=== PATIENT | female | born 1990 | race Caucasian/White ===

== ENCOUNTER 2018-12-12 09:55 | Emergency (ER) | payer BC ==
[2018-12-12 10:11] VITALS: BP 135/85
--- NOTE | 2018-12-12 10:23 | EDM.PDOC ---
ED HPI GENERAL MEDICAL PROBLEM - General Chief Complaint: Abdominal Pain Stated Complaint: RIGHT SIDED PAIN Time Seen by Provider: 12/12/18 10:10 Source of Information: Reports: Patient, RN Notes Reviewed - History of Present Illness INITIAL COMMENTS - FREE TEXT/NARRATIVE: 28-year-old female comes in with right-sided lower abdominal and right pelvic discomfort. That started last evening but was more mild to moderate. This morning the pain is still present and becoming more severe this morning. The pain continues right lower abdomen and right pelvis without radiation. No nausea vomiting fever or chills. She does have history of a very large right ovarian cyst about 10 years ago and also had "a 2 part uterus and did have one part of that surgically removed about 10 years ago. She is on chronic control, does not have menstrual periods. There is no current vaginal bleeding or spotting. The pain is somewhat worse with walking, movement this morning. Right Lower Abdomen Pain Score (Numeric/FACES): 9 - Related Data Allergies Allergy/AdvReac Type Severity Reaction Status Date / Time No Known Allergies Allergy Verified 12/12/18 10:03 Home Meds: Home Meds Cyanocobalamin (Vitamin B12) [Vitamin B13] 500 mcg PO DAILY 12/12/18 [History] Ergocalciferol (Vitamin D2) [Vitamin D2] 400 unit PO DAILY 12/12/18 [History] Levonorgestrel-Ethin Estradiol [Setlakin 0.15 mg-0.03 mg Tab] 1 tab PO DAILY [History] PNV95/Ferrous Fumarate/FA [ Tablet] 1 tab PO DAILY 12/12/18 [History] Past Medical History HEENT History: Reports: Impaired Vision Cardiovascular History: Reports: None Respiratory History: Reports: Bronchitis, Recurrent, Pneumonia, Recurrent Gastrointestinal History: Reports: None Genitourinary History: Reports: Other (See Below) Other Genitourinary History: ONLY ONE KIDNEY FUNCTIONS NORMALLY 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 SPECIALIST History: Reports: Endometriosis Other 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 SPECIALIST History: mass by the ovary- blood filled and ovary removed Musculoskeletal History: Reports: None Neurological History: Reports: Headaches, Chronic Psychiatric History: Reports: Anxiety Endocrine/Metabolic History: Reports: None Hematologic History: Reports: None Immunologic History: Reports: None Oncologic (Cancer) History: Reports: None Dermatologic History: Reports: Eczema - Infectious Disease History Infectious Disease History: Reports: None - Past Surgical History HEENT Surgical History: Reports: Oral Surgery Female Surgical History: Reports: Oophorectomy, Other (See Below) Other Female Surgeries/Procedures: HX OF UTERINE ISSUES, NOT FORMED CORRECTLY , HAD PART OF UTEROUS REMOVED. HX OF CYSTS. Social & Family History - Family History Family Medical History: Noncontributory - Tobacco Use Smoking Status *Q: Never Smoker - Caffeine Use Caffeine Use: Reports: Coffee, Tea - Recreational Drug Use Recreational Drug Use: No - Living Situation & Occupation Living situation: Reports: , with Spouse Occupation: Employed ED ROS GENERAL - Review of Systems Review Of Systems: See Below Constitutional: Denies: Fever, Chills, Diaphoresis HEENT: Denies: Throat Pain Respiratory: Denies: Shortness of Breath, Cough Cardiovascular: Denies: Chest Pain, Lightheadedness GI/Abdominal: Reports: Abdominal Pain. Denies: Nausea (Right lower abdomen), Vomiting Musculoskeletal: Reports: Back Pain (Mild) Skin: Reports: No Symptoms Neurological: Reports: No Symptoms ED EXAM, GI/ABD - Physical Exam Exam: See Below General Appearance: Alert, Mild Distress Eyes: Bilateral: Normal Appearance Throat/Mouth: Normal Inspection Head: Atraumatic Neck: Supple Respiratory/Chest: No Respiratory Distress, Lungs Clear, Normal Breath Sounds Cardiovascular: Regular Rate, Rhythm GI/Abdominal Exam: Soft, Tender (There is moderate tenderness of the right lower abdomen), Other (Remainder of abdomen soft and nontender). No: Guarding, Rebound (Female) Exam: Other (Is moderate tenderness of the right lower pelvis, no mass palpable) Extremities: Normal Inspection, Normal Range of Motion Skin Exam: Warm, Dry, Normal Color Course - Vital Signs Last Recorded V/S: Last Vital Signs Temp 98.2 F 12/12/18 10:08 Pulse 86 12/12/18 10:08 Resp 14 12/12/18 10:08 BP 135/85 12/12/18 10:08 Pulse Ox 100 12/12/18 10:08 - Orders/Labs/Meds Orders: Active Orders 24 hr Category Date Time Status Peripheral IV Care [RC] . DIRECTED Care 12/12/18 10:31 Active Peripheral IV Insertion Adult [OM.PC] Stat Oth 12/12/18 10:31 Ordered Labs: Laboratory Tests 12/12/18 12/12/18 12/12/18 Range/Units 10:35 10:35 10:35 WBC 7.50 (3.98-10.04) K/mm3 RBC 5.22 (3.98-5.22) M/mm3 Hgb 16.1 H (11.2-15.7) gm/L Hct 44.5 (34.1-44.9) % MCV 85.2 (79.4-94.8) fl MCH 30.8 (25.6-32.2) pg MCHC 36.2 H (32.2-35.5) g/dl RDW Std Deviation 40.8 (36.4-46.3) fL Plt Count 250 (182-369) K/mm3 MPV 11.6 (9.4-12.3) fl Neutrophils % (Manual) 68 H (40-60) % Band Neutrophils % 0 (0-10) % Lymphocytes % (Manual) 22 (20-40) % Atypical Lymphs % 0 % Monocytes % (Manual) 2 (2-10) % Eosinophils % (Manual) 8 H (0.7-5.8) % Basophils % (Manual) 0 L (0.1-1.2) Platelet Estimate Adequate Plt Morphology Comment Normal RBC Morph Comment Normal C-Reactive Protein 0.8 (<1.0) mg/dL HCG, Qual Negative (NEGATIVE) Meds: Medications Discontinued Medications Generic Name Dose Route Start Last Admin Trade Name Freq PRN Reason Stop Dose Admin Hydromorphone HCl 0.5 mg 12/12/18 10:31 12/12/18 10:44 Dilaudid IVPUSH 12/12/18 10:32 0.5 mg ONETIME ONE Administration Sodium Chloride 10 ml 12/12/18 10:31 12/12/18 10:42 Saline Flush FLUSH 10 ml ASDIRECTED PRN Administration Keep Vein Open - Re-Assessments/Exams Free Text/Narrative Re-Assessment/Exam: 12/12/18 14:36. White blood count came back at 7500, C-reactive protein 0.8. HCG negative. Pelvic ultrasound showed just a small amount of fluid within the right adnexa most likely physiologic. Right ovary mildly larger than the left. See radiology report for details. Limited abdominal ultrasound did have bowel gas limiting the exam. Appendix not definitely visualized. No free fluid or inflammatory change appreciated. See radiology report for details. She did get fairly good relief of pain after 0.5 mg Dilaudid IV. On reexam she still did have some mild tenderness right lower quadrant but no guarding or rebound. She was actually starting to feel hungry and never did have nausea or vomiting. We did discuss option of proceeding to abdominal CT exam versus watching, waiting and giving this a chance to get better. She and family prefer that option, she will come back if symptoms worsening this evening for as needed. Charge instructions as documented. Departure - Departure Time of Disposition: 14:29 Disposition: Home, Self-Care 01 Condition: Fair Clinical Impression: Abdominal pain Qualifiers: Abdominal location: right lower quadrant Qualified Code(s): R10.31 - Right lower quadrant pain - Discharge Information Instructions: Abdominal Pain, Adult Referrals: Tabby Nieves MD [Primary Care Provider] - Forms: ED Department Discharge Additional Instructions: Rest, clear liquids for the next hour or 2, then very careful bland diet as tolerated, return to ED this evening or at any time if symptoms worsening in any way. Follow-up clinic tomorrow if not better, return to ED if not able to get into the clinic if not better by tomorrow. You may safely take Tylenol or ibuprofen as needed for discomfort. - My Orders Last 24 Hours: My Active Orders 12/12/18 10:31 Peripheral IV Care [RC] . DIRECTED Peripheral IV Insertion Adult [OM.PC] Stat - Assessment/Plan Last 24 Hours: My Active Orders 12/12/18 10:31 Peripheral IV Care [RC] . DIRECTED Peripheral IV Insertion Adult [OM.PC] Stat
[2018-12-12] MEDS ORDERED: Sodium Chloride 0.9% 10 ML Syringe FLUSH PRN (10:31)
[2018-12-12] MEDS ORDERED: HYDROmorphone 0.5 MG/0.5 ML Syringe IVPUSH ONE (10:31)
--- NOTE | 2018-12-12 13:30 | US ---
Limited abdominal ultrasound: Multiple real-time images of the right lower abdomen were obtained. Bowel gas is seen limiting the exam. Appendix not definitely visualized. No free fluid or inflammatory change is appreciated. Impression: 1. Slightly limited due to bowel gas. Nonvisualized appendix. Diagnostic code #2
--- NOTE | 2018-12-12 13:30 | US ---
Pelvic ultrasound: Multiple real-time images were obtained transvaginally. Comparison: No prior pelvic imaging. Uterus is anteverted and pointed to the right side. No myometrial abnormality is seen. Endometrial thickness is 3.0 mm. Right and left ovaries appear within normal limits. Minimal free fluid is seen within the right adnexa likely physiologic. Measurements: Uterus: Length 6.2 cm, AP height 1.8 cm,transverse width 2.2 cm Right ovary: 3.1 x 1.8 x 2.4 cm Left ovary: 2.1 x 0.8 x 1.1 cm Impression: 1. Slight fluid within the right adnexa most likely physiologic. 2. Pelvic ultrasound is otherwise unremarkable. Diagnostic code #2
== END 2018-12-12 14:45 | disposition home or self-care (01) ==
LOC: JD.ED 09:55
DX: R10.31 Right lower quadrant pain (principal); F41.9 Anxiety disorder, unspecified; Z79.899 Other long term (current) drug therapy
CPT/HCPCS: 36415; 76705; 76830; 84703; 85007; 85027; 86140; 96374; 99284; J1170

== ENCOUNTER 2019-11-23 11:27 | Emergency (ER) | payer BC ==
[2019-11-23 11:46] VITALS: BP 118/79; PULSE 88
[2019-11-23] MEDS ORDERED: Lidocaine 1% 10 ML MDV INJECT ONE (11:52)
[2019-11-23] MEDS ORDERED: Diphtheria,Pertussis(Acell),Tetanus Vaccine 0.5 ML Syringe IM ONE (11:52)
--- NOTE | 2019-11-23 11:57 | EDM.PDOC ---
ED HPI GENERAL MEDICAL PROBLEM - General Chief Complaint: Laceration Stated Complaint: FINGER LAC Time Seen by Provider: 11/23/19 11:38 Source of Information: Reports: Patient History Limitations: Reports: No Limitations - History of Present Illness INITIAL COMMENTS - FREE TEXT/NARRATIVE: Patient is a 29-year-old female who presents with a 2 cm laceration to the volar aspect of her left thumb distal to the MCP joint. States that she was trying to cut a piece of tape with a scissor and it slipped and cut her finger. She is unsure when her last tetanus vaccination Left Finger-Thumb Pain Score (Numeric/FACES): 8 - Related Data Allergies Allergy/AdvReac Type Severity Reaction Status Date / Time No Known Allergies Allergy Verified 12/12/18 10:03 Home Meds: Home Meds Albuterol [Proventil HFA] 1 inh INH ASDIRECTED 11/23/19 [History] Fluticasone Propionate [Flonase Allergy Relief] 1 spray INH DAILY 11/23/19 [ History] Past Medical History HEENT History: Reports: Impaired Vision Cardiovascular History: Reports: None Respiratory History: Reports: Bronchitis, Recurrent, Pneumonia, Recurrent Gastrointestinal History: Reports: None Genitourinary History: Reports: Other (See Below) Other Genitourinary History: ONLY ONE KIDNEY FUNCTIONS NORMALLY 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: Endometriosis 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: mass by the ovary- blood filled and ovary removed Musculoskeletal History: Reports: None Neurological History: Reports: Headaches, Chronic Psychiatric History: Reports: Anxiety Endocrine/Metabolic History: Reports: None Hematologic History: Reports: None Immunologic History: Reports: None Oncologic (Cancer) History: Reports: None Dermatologic History: Reports: Eczema - Infectious Disease History Infectious Disease History: Reports: None - Past Surgical History HEENT Surgical History: Reports: Oral Surgery Female Surgical History: Reports: Oophorectomy, Other (See Below) Other Female Surgeries/Procedures: HX OF UTERINE ISSUES, NOT FORMED CORRECTLY , HAD PART OF UTEROUS REMOVED. HX OF CYSTS. Social & Family History - Family History Family Medical History: Noncontributory - Tobacco Use Smoking Status *Q: Never Smoker - Caffeine Use Caffeine Use: Reports: Coffee, Soda - Recreational Drug Use Recreational Drug Use: No - Living Situation & Occupation Living situation: Reports: , with Spouse Occupation: Employed ED ROS GENERAL - Review of Systems Review Of Systems: Comprehensive ROS is negative, except as noted in HPI. ED EXAM, SKIN/RASH Exam: See Below Exam Limited By: No Limitations General Appearance: Alert, WD/WN, No Apparent Distress Respiratory/Chest: No Respiratory Distress, Lungs Clear, Normal Breath Sounds, No Accessory Muscle Use, Chest Non-Tender Cardiovascular: Normal Peripheral Pulses, Regular Rate, Rhythm, No Edema, No Gallop, No JVD, No Murmur, No Rub Skin: Other (2 cm laceration to the volar aspect of the left thumb distal to the MCP joint. Patient has a full strength to flexion and extension of the digit. Scant active bleeding.) ED SKIN PROCEDURES - Laceration/Wound Repair Left Ventral Digit - 1st (Thumb) Appearance: Subcutaneous Distal NVT: Neuro & Vascular Intact Anesthetic Type: Local Local Anesthesia - Lidocaine (Xylocaine): 1% Plain Local Anesthetic Volume: 2cc Skin Prep: Chlorhexidine (Hibiciens), Providone-Iodine (Betadine), Saline Exploration/Debridement/Repair: Wound Explored, No Foreign Material Found Closed with: Sutures Lac/Wound length In cm: 2 Suture Size: 4-0 # of Sutures: 4 Suture Type: Nylon Sterile Dressing Applied: Nurse Tetanus Status Addressed: Yes Complications: No Course - Vital Signs Last Recorded V/S: Last Vital Signs Temp 98.1 F 11/23/19 11:44 Pulse 88 11/23/19 11:44 Resp 20 11/23/19 11:44 BP 118/79 11/23/19 11:44 Pulse Ox 99 11/23/19 11:44 - Orders/Labs/Meds Orders: Active Orders 24 hr Category Date Time Status Vaccines to be Administered [RC] PER UNIT ROUTINE Care 11/23/19 11:52 Active Meds: Medications Discontinued Medications Generic Name Dose Route Start Last Admin Trade Name Freq PRN Reason Stop Dose Admin Diphtheria/Tetanus/Acell Pertussis 0.5 ml 11/23/19 11:52 11/23/19 12:02 Adacel IM 11/23/19 11:53 0.5 ml .ONCE ONE Administration Lidocaine HCl 10 ml 11/23/19 11:52 11/23/19 12:02 Xylocaine 1% INJECT 11/23/19 11:53 10 ml ONETIME ONE Administration Departure - Departure Time of Disposition: 12:21 Disposition: Home, Self-Care 01 Condition: Good Clinical Impression: Laceration - Discharge Information *PRESCRIPTION DRUG MONITORING PROGRAM REVIEWED*: No *COPY OF PRESCRIPTION DRUG MONITORING REPORT IN PATIENT AUSTYN: No Instructions: Sutures, Peck, or Adhesive Wound Closure, [id number], Laceration Care, Adult, [id number] Referrals: Tabby Nieves MD [Primary Care Provider] - Forms: ED Department Discharge Additional Instructions: You were seen in the emergency department today for a 2 cm laceration to your left thumb. The wound was cleansed and closed with 4 sutures. It should be kept clean and dry. Wash twice daily with normal soap and water. You may shower like normal, however do not submerge your hand in water. Sutures should stay in place for at least 7 days. Recommend that you call to schedule a nurse visit on or Wednesday of next week to have the sutures removed. Watch for signs of infection including increased redness, swelling, or purulent drainage. If these should occur, you should be seen in the clinic or return to the emergency department. He did receive a tetanus vaccination today. This updates you for 10 years. Sepsis Event Note - Evaluation Sepsis Screening Result: No Definite Risk - Focused Exam Vital Signs: Vital Signs Temp Pulse Resp BP Pulse Ox 11/23/19 11:44 98.1 F 88 20 118/79 99 Date Exam was Performed: 11/23/19 Time Exam was Performed: 12:21 - My Orders Last 24 Hours: My Active Orders 11/23/19 11:52 Vaccines to be Administered [RC] PER UNIT ROUTINE - Assessment/Plan Last 24 Hours: My Active Orders 11/23/19 11:52 Vaccines to be Administered [RC] PER UNIT ROUTINE
== END 2019-11-23 12:30 | disposition home or self-care (01) ==
LOC: JD.ED 11:27
DX: S61.012A Laceration without foreign body of left thumb without damage to nail, initial encounter (principal); Z23 Encounter for immunization; W27.2XXA Contact with scissors, initial encounter
CPT/HCPCS: 12001; 90471; 90715; 99282; J2001

== ENCOUNTER 2020-08-07 22:19 | Inpatient (IN) | payer BC ==
[2020-08-07] MEDS ORDERED: Azithromycin 500 MG in Sodium Chloride 0.9% 250 ML IV ONE (22:46)
[2020-08-07] MEDS ORDERED: Sodium Chloride 0.9% 10 ML Syringe FLUSH PRN (22:46)
[2020-08-07] MEDS ORDERED: Metoclopramide 10 MG/2 ML SDV IVPUSH ONE (22:46)
[2020-08-07] MEDS ORDERED: ceFAZolin 2 GM in Premix Bag 1 BAG IV ONE (22:46)
[2020-08-07] MEDS ORDERED: Citric Acid/Sodium Citrate Solution 30 ML Cup PO ONE (22:46)
[2020-08-07] MEDS ORDERED: Oxytocin/Lactated Ringers 10 UNIT/1,000 ML BAG IV SCH (23:00)
[2020-08-07] MEDS: Lactated Ringers 1,000 ML IV SCH (23:15)
--- NOTE | 2020-08-07 23:33 | PCM.LDHP ---
L&D History of Present Illness - General Date of Service: 08/07/20 Admit Problem/Dx: Patient Status Order with Admit Dx/Problem 08/07/20 22:29 Patient Status [ADT] Routine 08/07/20 22:46 Patient Status [ADT] Routine Admission Diagnosis/Problem Admission Diagnosis/Problem 08/07/20 23:17 Erika is a 29-year-old 1 para 0 white female who is admitted to labor and delivery on the evening of 08/07/2020 at 36-6/7 weeks gestational age with an SILVIA of 08/29/2020 with spontaneous rupture membranes in early labor. She has a unicornuate uterus and has had uterine surgery in the past precluding an attempt at vaginal delivery and indicating the recommendation for primary section to effect delivery. Source of Information: Patient History Limitations: Reports: No Limitations - History of Present Illness Introduction:: Erika is a 29-year-old 1 para 0 white female who is admitted to labor and delivery on the evening of 08/07/2020 at 36-6/7 weeks gestational age with an SILVIA of 08/29/2020 with spontaneous rupture membranes in early labor. She has a unicornuate uterus and has had uterine surgery in the past precluding an attempt at vaginal delivery and indicating the recommendation for primary section to effect delivery. The procedure of primary section, its risks, benefits and alternatives of care are discussed in detail the patient. She appears to understand, wishes to proceed and has signed a consent for surgery. CLERK RATING history: 1 para 0. SILVIA of 08/29/2020 is determined by an ultrasound done early in the at 9-3/7 weeks. Is supported by multiple ultrasounds during the course of the rest of the . Patient has a history of previous uterine surgery with scar on the fundus of the uterus precluding a trial of labor for attempt at vaginal delivery. She is scheduled for primary section on 08/20/2020 but has come in with spontaneous rupture membranes at approximately 2130 hrs. tonight with gross rupture membranes and is now yoan approximately every 3 to 5 minutes. Patient had menarche at age 17. Cycles q. 26 to 30 days. Last menstrual period was definite. She does not use any control time of conception. She has had no abnormal Pap smears or STIs. She is sexually active. course: Patient was seen initially early in the at 9 7 weeks gestational age. Ultrasound at that time resulted in her final SILVIA. Patient was seen on a regular basis throughout the . She had regular monthly growth ultrasounds which indicated normal growth interval. Weight gain was from 145.4 pounds to 188.8 pounds for a 43.4 pound increase. Fundal height growth was appropriate. Baby's been in vertex presentation. Weekly biophysical profiles since 32 weeks have been reassuring with scores of 8/8. Plan was to proceed with a primary section to effect delivery. Patient had an abnormal 1 hour GTT but a normal 3-hour glucose tolerance test. She is group B strep negative. She plans to breast-feed. Prequel was completed and was unremarkable with very low risk noted for trisomy 21, 18 and 13. Risk factors for the include history of unicornuate uterus, previous uterine surgery, single kidney and asthma. Erika had her flu shot on 05/14/2020 and her Tdap on 07/02/2020. Laboratory testing shows blood to be O+ with a negative CA screen. First hemoglobin was 14.9 g/dL. Platelets were 236,000. Her rubella titer showed a equivocal results. She is therefore candidate for a MMR after delivery and prior to discharge from the hospital at the time of . RPR was nonreactive. His urine culture was negative. Hepatitis B surface antigen and HIV assays were both negative. Gonorrhea and chlamydia assays both negative. Second trimester labs showed a hemoglobin of 13.5 g/dL and platelets of 207,000. 1 hour GTT was elevated at 134. Her glucose tolerance test was normal with fasting blood sugar of 77, 1 hour glucose of 155, 2-hour glucose of 102 and a 3-hour glucose of 101. Group B strep screen was negative. Allergies: None. Medications: 1. vitamins 1 p.o. daily 2. Fluticasone propionate nasal suspension 2 sprays in each nostril daily 3. ProAir HFA 1 await micrograms per action inhaler as needed for wheezing. Past medical history: 1. Unicornuate uterus with removal noncommunicating horn 2008 2. Single kidney 3. Asthma Past surgical history: 1. Removal of non-communicating horn of the uterus 2008 2. [place] teeth extraction Social history: Patient is . is Charles Camacho. They live in [place], [place]. She is not employed at the present time. She does not use any significant also alcohol, drugs or tobacco. She is a college graduate. Family history: Mother is alive and well. Father is alive and well and questionably prediabetic. 1 brother alive and well. Maternal grandmother secondary to an aneurysm. Maternal grandfather age 85 from colon cancer. Paternal grandmother is alive is a smoker. Paternal grandfather secondary to metastatic cancerprimary cancer unknown. No anesthesia, asthma, bleeding, blood clotting, related problems noted in the family. Review of systems: In general patient has no complaints. She does report SROM with clear amniotic fluid and early contractions. Baby has been active. Skin: Negative Lungs: No infectious symptoms or shortness of breath Cardiovascular: No chest pain or exercise intolerance Breasts: No lumps, changes in size, pain, dimpling, discharge or axillary or tate praclavicular concerns. GI: Negative : body habitus changes Musculoskeletal: Negative Neurological: Negative Physical exam: In general the patient is well-developed, well-nourished, pleasant female of stated age in no acute distress. Last evaluation clinic on 08/06/2019 Erika's weight was 188.8 with a pregravida weight of 145.4 pounds. Height is 5 feet 9. Prepregnancy body mass index was 20.7. heart rate was 140. Fundal height measurement was 37 inches. Baby is in vertex presentation by Axel maneuver and by ultrasound at that time. Skin is warm dry without lesions. HEENT, neck and back within normal limits. Lungs are clear with good breath sounds in all lung pan. Cardiovascular exam shows regular and rhythm without murmurs. Breast exam done at first visit was within normal months and is not repeated at this time. Patient does plan to breast-feed. Abdomen is gravid with last fundal height of 37 cm. Baby in vertex presentation.. Genital digital exam done by nursing staff in L&D at the time of admission showed cervix to be 3 cm.. Extremities and neurological exam are grossly within normal limits. - Related Data Allergies/Adverse Reactions: Allergies Allergy/AdvReac Type Severity Reaction Status Date / Time No Known Allergies Allergy Verified 12/12/18 10:03 Home Medications: Home Meds Albuterol [Proventil HFA] 1 inh INH ASDIRECTED 11/23/19 [History] Fluticasone Propionate [Flonase Allergy Relief] 1 spray INH DAILY 11/23/19 [History] Past Medical History HEENT History: Reports: Impaired Vision Cardiovascular History: Reports: None Respiratory History: Reports: Bronchitis, Recurrent, Pneumonia, Recurrent Gastrointestinal History: Reports: None Genitourinary History: Reports: Other (See Below) Other Genitourinary History: ONLY ONE KIDNEY FUNCTIONS NORMALLY CLERK RATING History: Reports: Endometriosis Other OB/BYN History: mass by the ovary- blood filled and ovary removed Musculoskeletal History: Reports: None Neurological History: Reports: Headaches, Chronic Psychiatric History: Reports: Anxiety Endocrine/Metabolic History: Reports: None Hematologic History: Reports: None Immunologic History: Reports: None Oncologic (Cancer) History: Reports: None Dermatologic History: Reports: Eczema - Infectious Disease History Infectious Disease History: Reports: None - Past Surgical History HEENT Surgical History: Reports: Oral Surgery Female Surgical History: Reports: Oophorectomy, Other (See Below) Other Female Surgeries/Procedures: HX OF UTERINE ISSUES, NOT FORMED CORRECTLY, HAD PART OF UTEROUS REMOVED. HX OF CYSTS. Social & Family History - Family History Family Medical History: No Pertinent Family History - Caffeine Use Caffeine Use: Reports: Coffee, Soda - Living Situation & Occupation Living situation: Reports: , with Spouse Occupation: Employed H&P Review of Systems - Review of Systems: Review Of Systems: See Below L&D Exam - Exam Exam: See Below - Vital Signs Vital Signs: Last Vital Signs Temp 37.7 C 08/07/20 22:29 Pulse 83 08/07/20 22:29 Resp 16 08/07/20 22:29 BP 130/81 08/07/20 22:29 Pulse Ox 100 08/07/20 22:29 - Patient Data Lab Results Last 24 hrs: Laboratory Results - last 24 hr 08/07/20 Range/Units 22:56 WBC 11.57 H (3.98-10.04) K/mm3 RBC 4.51 (3.98-5.22) M/mm3 Hgb 13.5 (11.2-15.7) gm/dl Hct 40.1 (34.1-44.9) % MCV 88.9 (79.4-94.8) fl MCH 29.9 (25.6-32.2) pg MCHC 33.7 (32.2-35.5) g/dl RDW Std Deviation 44.9 (36.4-46.3) fL Plt Count 170 L (182-369) K/mm3 MPV 12.0 (9.4-12.3) fl Neut % (Auto) 65.9 (34.0-71.1) % Lymph % (Auto) 22.3 (19.3-51.7) % [place] % (Auto) 9.7 (4.7-12.5) % Eos % (Auto) 1.5 (0.7-5.8) Baso % (Auto) 0.2 (0.1-1.2) % Neut # (Auto) 7.63 H (1.56-6.13) K/mm3 Lymph # (Auto) 2.58 (1.18-3.74) K/mm3 [place] # (Auto) 1.12 H (0.24-0.36) K/mm3 Eos # (Auto) 0.17 (0.04-0.36) K/mm3 Baso # (Auto) 0.02 (0.01-0.08) K/mm3 Result Diagrams: 08/07/20 22:56 Problem List Initiated/Reviewed/Updated: Yes Orders Last 24hrs: Active Orders 24 hr Category Date Time Status Patient Status [ADT] Routine ADT 08/07/20 22:46 Active Antiembolic Devices [RC] .Routine Care 08/07/20 22:48 Active Communication Order [RC] ROUTINE Care 08/07/20 22:46 Active Heart Tones [RC] PER UNIT ROUTINE Care 08/07/20 22:46 Active Non Stress Test [RC] PER UNIT ROUTINE Care 08/07/20 22:29 Active Peripheral IV Care [RC] . DIRECTED Care 08/07/20 22:46 Active Procedure Site Prep Instruct [RC] ASDIRECTED Care 08/07/20 22:46 Active Urinary Catheter Assessment [RC] ASDIRECTED Care 08/07/20 22:46 Active VTE/DVT Education [RC] PER UNIT ROUTINE Care 08/07/20 22:48 Active Verify Patient Consent Obtain [RC] PER UNIT ROUTINE Care 08/07/20 22:46 Active Vital Signs [RC] PER UNIT ROUTINE Care 08/07/20 22:29 Active Nothing Per Oral Diet [DIET] Diet 08/07/20 Dinner Active CORONAVIRUS COVID-19 [facility]OS[facility]IGU[facility] [MOLEC] Stat Lab 08/07/20 22:55 Received RAPID PLASMA REAGIN,RPR [CHEM] Routine Lab 08/07/20 22:56 Received TYPE AND SCREEN [BBK] Stat Lab 08/07/20 22:56 Received Azithromycin [Zithromax] 500 mg Med 08/07/20 22:46 Active Sodium Chloride 0.9% [Normal Saline (AdvBag)] 250 ml IV ONETIME Lactated Ringers [Ringers, Lactated] 1,000 ml Med 08/07/20 23:00 Active IV ASDIRECTED Oxytocin/Lactated Ringers [Pitocin in LR 10 Units/1,000 Med 08/07/20 23:00 Active ML] 10 unit in 1,000 ml IV ASDIRECTED Sodium Chloride 0.9% [Saline Flush] Med 08/07/20 22:46 Active 10 ml FLUSH ASDIRECTED PRN DVT/VTE Prophylaxis Reflex [OM.PC] Routine Oth 08/07/20 22:46 Ordered Peripheral IV Insertion Adult [OM.PC] Routine Oth 08/07/20 22:46 Ordered Schedule Procedure [COMM] Per Unit Routine Oth 08/07/20 22:46 Ordered Resuscitation Status Routine Resus Stat 08/07/20 22:29 Ordered Medication Orders Lactated Ringer's (Ringers, Lactated) 1,000 mls @ 125 mls/hr IV ASDIRECTED KEIRA Last Admin: 08/07/20 23:15 Dose: 999 mls/hr Documented by: DEVENDRA Oxytocin/Lactated Ringer's (Pitocin In Lr 10 Units/1,000 Ml) 10 unit in 1,000 mls @ 100 mls/hr IV ASDIRECTED KEIRA Azithromycin 500 mg/ Sodium (Chloride) 250 mls @ 250 mls/hr IV ONETIME ONE Stop: 08/07/20 23:45 Last Admin: 08/07/20 23:15 Dose: 250 mls/hr Documented by: DEVENDRA Sodium Chloride (Saline Flush) 10 ml FLUSH ASDIRECTED PRN PRN Reason: Keep Vein Open Assessment/Plan Comment:: Michelle is a 29-year-old 1 para 0 white female who is admitted to labor and delivery on the evening of 08/07/2020 at 36-6/7 weeks gestational age with an SILVIA of 08/29/2020 with spontaneous rupture membranes in early labor. She has a unicornuate uterus and has had uterine surgery in the past precluding an attempt at vaginal delivery and indicating the recommendation for primary section to effect delivery. 2. Risk factors for the include unicornuate uterus, history of pr evious uterine surgery, history of single kidney, history of asthma. 3. Group B strep screen negative 4. Patient has received her Tdap and her flu immunization 5. Patient plans to breast-feed. 6. Patient was a centering patient during the course of her . 7. testing consisting of biophysical profiles done weekly and monthly growth ultrasounds prior to that have been reassuring Plan: 1. Primary low uterine segment transverse section through Pfannenstiel skin incision. The procedure, risk, benefits, alternatives of care and follow- up were discussed in detail with the patient. She appears understand as does her Charles and they wish to proceed. Consent is signed. 2. Preoperative laboratory testing consist of COVID-19 testing, CBC, type and screen, RPR. 3. DVT prophylaxis with SCDs 4. Ancef 2 g IV preop for infection prophylaxis 5. Pediatrics to be here for delivery. 6. Support breast-feeding decision.
[2020-08-07] MEDS ORDERED: Bupivacaine 0.5% 30 ML SDV ONE (23:34)
[2020-08-08] MEDS ORDERED: Oxytocin 10 Units/1 ML SDV ONE
[2020-08-08] MEDS ORDERED: fentaNYL 100 MCG/2 ML SDV ONE
[2020-08-08] MEDS ORDERED: Morphine PF 10 MG/10 ML SDV ONE
[2020-08-08] MEDS ORDERED: ceFAZolin 1 GM Vial ONE
[2020-08-08] MEDS ORDERED: Lactated Ringers 1,000 ML ONE (00:16)
[2020-08-08] MEDS ORDERED: fentaNYL 100 MCG/2 ML SDV IVPUSH PRN (00:39)
[2020-08-08] MEDS ORDERED: Ondansetron 4 MG/2 ML SDV IVPUSH PRN (00:39)
[2020-08-08] MEDS ORDERED: diphenhydrAMINE 50 MG/ML SDV IVPUSH PRN ×2 (00:39→02:31)
--- NOTE | 2020-08-08 00:39 | PCM.PREANE ---
Preanesthetic Assessment - Procedure Proposed Procedure: Primary Section - Anesthesia/Transfusion/Family Hx Anesthesia History: Prior Anesthesia Reaction Transfusion History: No Prior Transfusion(s) - Review of Systems General: No Symptoms Pulmonary: No Symptoms Cardiovascular: No Symptoms Gastrointestinal: No Symptoms Neurological: No Symptoms Other: Reports: None - Physical Assessment NPO Status Date: 08/07/20 NPO Status Time: 20:00 Vital Signs: Last Vital Signs Temp 99.9 F 08/07/20 22:29 Pulse 83 08/07/20 22:29 Resp 16 08/07/20 22:29 BP 130/81 08/07/20 22:29 Pulse Ox 100 08/07/20 22:29 Height: 1.65 m Weight: 85.275 kg ASA Class: 2E Mental Status: Alert & Oriented x3 Airway Class: Mallampati = 1 Dentition: Reports: Normal Dentition Thyro-Mental Finger Breadths: 3 Mouth Opening Finger Breadths: 3 ROM/Head Extension: Full Lungs: Clear to Auscultation, Normal Respiratory Effort Cardiovascular: Regular Rate, Regular Rhythm - Lab Values: Laboratory Last Values WBC 11.57 K/mm3 (3.98-10.04) H 08/07/20 22:56 RBC 4.51 M/mm3 (3.98-5.22) 08/07/20 22:56 Hgb 13.5 gm/dl (11.2-15.7) 08/07/20 22:56 Hct 40.1 % (34.1-44.9) 08/07/20 22:56 MCV 88.9 fl (79.4-94.8) 08/07/20 22:56 MCH 29.9 pg (25.6-32.2) 08/07/20 22:56 MCHC 33.7 g/dl (32.2-35.5) 08/07/20 22:56 RDW Std Deviation 44.9 fL (36.4-46.3) 08/07/20 22:56 Plt Count 170 K/mm3 (182-369) L 08/07/20 22:56 MPV 12.0 fl (9.4-12.3) 08/07/20 22:56 Neut % (Auto) 65.9 % (34.0-71.1) 08/07/20 22:56 Lymph % (Auto) 22.3 % (19.3-51.7) 08/07/20 22:56 [place] % (Auto) 9.7 % (4.7-12.5) 08/07/20 22:56 Eos % (Auto) 1.5 (0.7-5.8) 08/07/20 22:56 Baso % (Auto) 0.2 % (0.1-1.2) 08/07/20 22:56 Neut # (Auto) 7.63 K/mm3 (1.56-6.13) H 08/07/20 22:56 Lymph # (Auto) 2.58 K/mm3 (1.18-3.74) 08/07/20 22:56 [place] # (Auto) 1.12 K/mm3 (0.24-0.36) H 08/07/20 22:56 Eos # (Auto) 0.17 K/mm3 (0.04-0.36) 08/07/20 22:56 Baso # (Auto) 0.02 K/mm3 (0.01-0.08) 08/07/20 22:56 SARS-CoV-2 RNA (JOS[facility] MIGUEL) Negative (NEGATIVE) 08/07/20 22:55 Blood Type O POSITIVE 08/07/20 22:56 Gel Antibody Screen Negative 08/07/20 22:56 - Allergies Allergies/Adverse Reactions: Allergies Allergy/AdvReac Type Severity Reaction Status Date / Time No Known Allergies Allergy Verified 08/07/20 23:43 - Acknowledgements Anesthesia Type Planned: Spinal Pt an Appropriate Candidate for the Planned Anesthesia: Yes Alternatives and Risks of Anesthesia Discussed w Pt/Guardian: Yes Pt/Guardian Understands and Agrees with Anesthesia Plan: Yes PreAnesthesia Questionnaire HEENT History: Reports: Impaired Vision, Otitis Media Cardiovascular History: Reports: None Respiratory History: Reports: Bronchitis, Recurrent, Pneumonia, Recurrent Gastrointestinal History: Reports: None Genitourinary History: Reports: Other (See Below) Other Genitourinary History: ONLY ONE KIDNEY FUNCTIONS NORMALLY 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: Other OB/BYN History: mass by the ovary- blood filled and ovary removed Musculoskeletal History: Reports: None Neurological History: Reports: Headaches, Chronic Psychiatric History: Reports: Anxiety Endocrine/Metabolic History: Reports: None Hematologic History: Reports: None Immunologic History: Reports: None Oncologic (Cancer) History: Reports: None Dermatologic History: Reports: Eczema - Infectious Disease History Infectious Disease History: Reports: None - Past Surgical History HEENT Surgical History: Reports: Oral Surgery Female Surgical History: Reports: Oophorectomy, Other (See Below) Other Female Surgeries/Procedures: HX OF UTERINE ISSUES, NOT FORMED CORRECTLY, HAD PART OF UTEROUS REMOVED. HX OF CYSTS. - SUBSTANCE USE Tobacco Use Status *Q: Never Tobacco User Second Hand Smoke Exposure: No Recreational Drug Use History: No - HOME MEDS Home Medications: Home Meds Pnv No.95/Ferrous Fum/Folic AC [ Tablet] 1 each PO DAILY 08/07/20 [History] - CURRENT (IN HOUSE) MEDS Current Meds: Current Medications Lactated Ringer's (Ringers, Lactated) 1,000 mls @ 125 mls/hr IV ASDIRECTED [facility] Last Admin: 08/07/20 23:15 Dose: 999 mls/hr Documented by: Oxytocin/Lactated Ringer's (Pitocin In Lr 10 Units/1,000 Ml) 10 unit in 1,000 mls @ 100 mls/hr IV ASDIRECTED [facility] Sodium Chloride (Saline Flush) 10 ml FLUSH ASDIRECTED PRN PRN Reason: Keep Vein Open Discontinued Medications Bupivacaine HCl (Marcaine 0.5%) Confirm Administered Dose 30 ml .ROUTE .STK-MED ONE Stop: 08/07/20 23:35 Cefazolin Sodium (Ancef) Confirm Administered Dose 2 gm .ROUTE .STK-MED ONE Stop: 08/08/20 00:01 Citric Acid/Sodium Citrate (Bicitra Solution) 30 ml PO ONETIME ONE Stop: 08/07/20 22:47 Last Admin: 08/07/20 23:16 Dose: 30 ml Documented by: Fentanyl (Sublimaze) Confirm Administered Dose 100 mcg .ROUTE .STK-MED ONE Stop: 08/08/20 00:01 Cefazolin Sodium/Dextrose 2 gm (/ Premix) 50 mls @ 100 mls/hr IV ONETIME ONE Stop: 08/07/20 23:15 Azithromycin 500 mg/ Sodium (Chloride) 250 mls @ 250 mls/hr IV ONETIME ONE Stop: 08/07/20 23:45 Last Admin: 08/07/20 23:15 Dose: 250 mls/hr Documented by: Lactated Ringer's (Ringers, Lactated) Confirm Administered Dose 1,000 mls @ as directed .ROUTE .STK-MED ONE Stop: 08/08/20 00:17 Metoclopramide HCl (Reglan) 10 mg IVPUSH ONETIME ONE Stop: 08/07/20 22:47 Last Admin: 08/07/20 23:16 Dose: 10 mg Documented by: Morphine Sulfate (Duramorph Pf) Confirm Administered Dose 10 mg .ROUTE .STK-MED ONE Stop: 08/08/20 00:01 Oxytocin (Pitocin) Confirm Administered Dose 20 unit .ROUTE .STK-MED ONE Stop: 08/08/20 00:01
[2020-08-08] MEDS ORDERED: Ketorolac 30 MG/ML SDV ONE (00:56)
--- NOTE | 2020-08-08 01:11 | PCM.POSTAN ---
POST ANESTHESIA ASSESSMENT - MENTAL STATUS Mental Status: Alert, Oriented - VITAL SIGNS Vital Signs: Last Vital Signs Temp 97.8 F 08/08/20 01:02 Pulse 96 08/08/20 01:02 Resp 15 08/08/20 01:02 BP 118/68 08/08/20 01:02 Pulse Ox 95 08/08/20 01:02 - RESPIRATORY Respiratory Status: Respiratory Rate WNL, Airway Patent, O2 Saturation Stable - CARDIOVASCULAR CV Status: Pulse Rate WNL, Blood Pressure Stable - GASTROINTESTINAL GI Status: No Symptoms - PAIN Pain Score: 0 (post SAB) - POST OP HYDRATION Hydration Status: Adequate & Stable
[2020-08-08] MEDS: Lactated Ringers 1,000 ML IV SCH (01:12)
--- NOTE | 2020-08-08 01:15 | PCM.OPNOTE ---
- General Post-Op/Procedure Note Date of Surgery/Procedure: 08/08/20 Operative Procedure(s): Primary lower uterine segment transverse section through Pfannenstiel skin incision Findings: Patient was noted to have moderate scarring in the anterior abdominal wall from previous 2 surgeries. Uterus was noted to be a unicornuate uterus with surgical scar in the left upper cornual area. The right ovary and fallopian tube were within normal limits. Significant vascularity noted on the anterior surface of the uterus in the presence of at least 3 varicose veins of 6 to 7 mm caliber. Baby is in a vertex presentation. Amniotic fluid was clear. Pre Op Diagnosis: 1. 37-0/7-week intrauterine , spontaneous rupture membranes, active labor. 2. History of previous uterine surgery consisting of resection of a rudimentary Left uterine horn precluding trial of labor. Post-Op Diagnosis: Same delivery of viable, 6 pounds 7 ounces (2920 g) 28 inch long male with Apgars of 8 and 9 at 0029 hours on 08/08/2020. Anesthesia Technique: Spinal Other Anesthesia Type: Can 0.5% - 20 cc local Primary Surgeon: Edwin Andres Secondary Surgeon: Katie Jacobson Anesthesia Provider: Raoul Dennis Reason Filling Machine Tender Was Necessary: Retraction, assistance, patient safety, quality of care. Fluid Replacement, Intraop: 1,800 Output, Urine Amount: 250 EBL in mLs: 500 Drain/Tube Comments:: Indwelling bladder catheter Complications: None Condition: Good Free Text/Narrative:: Intake & Output 08/07/20 08/07/20 08/08/20 14:59 22:59 06:59 Output Total 250 Balance -250 Surgery duration 28 minutes Surgery duration: Procedure: The patient is appropriately consented. Patient was transferred to the room and placed in a sitting position. Spinal anesthesia was administered. After confirmation of adequate anesthesia patient was placed in a supine position with a wedge under her right side to facilitate left lateral positioning. The patient was prepped and draped in usual fashion after Carvajal catheter was already placed . The anesthetic was checked and found to be adequate. 20 mL of Marcaine 0.5% was injected locally in the Pfannenstiel incision site. The Pfannenstiel skin incision was then made and carried down through skin, subcutaneous and fascial layers. The fascia was then undermined superiorly and inferiorly to allow for adequate operating room. The recti muscles midline and preperitoneal fat was bluntly dissected. Peritoneal cavity was entered longitudinally. Findings including a unicornuate uterus and some minimal scarring as described above. The vesicouterine peritoneum was then incised transversely and bladder flap was developed. Myometrium was incised transversely to the level of the amniotic sac. This incision was extended bilaterally in a blunt fashion. The amniotic sac was then ruptured resulting in clear amniotic fluid. A hand is placed in the low uterine segment and the baby's head was brought forth through the incision. The baby was completely delivered using fundal pressure in a routine fashion. The nose and mouth were bulb suctioned. Baby's cord was clamped x2 cut and baby was handed off to attending escalator mechanic Dr Andrews. Placenta was expressed after cord blood was obtained. Uterus was then exteriorized to allow for easier closure. The cervix was assessed and found to be dilated adequately to allow egress of blood. The uterus was closed in 2 layers. The first layer a running locked suture of 0 Monocryl, the second layer a running locked vertical mattress suture of 0 Monocryl. Hemostasis confirmed at this time. Sponge instrument needle counts are correct. The uterus was returned to the abdominal cavity and lateral gutters were cleared of blood. Once again sponge needle counts are correct. The anterior abdominal wall was closed with a #1 PDS suture from angle to angle. The subcutaneous area was found to be free of any bleeders. interrupted sutures of 3-0 Monocryl were used to reapproximate the subcutaneous layer.Skin was closed with a running subcuticular stitch of 3-0 Monocryl in a vertical mattress suture fashion using a Rainer needle. Prineo mesh/glue was then applied to further approximate the incision. It should be noted that patient received 2 g of Ancef preoperatively for infection prophylaxis and had Pitocin infused after delivery of the placenta to facilitate uterine contraction. She also had sequential compression stockings in place for DVT prophylaxis. Patient was discharged from the operating room in satisfactory condition.
[2020-08-08] MEDS ORDERED: Dextrose 5%-Lactated Ringers 1,000 ML IV SCH (02:31)
[2020-08-08] MEDS ORDERED: Naloxone 0.4 MG/ML SDV IVPUSH PRN (02:31)
[2020-08-08] MEDS ORDERED: Ondansetron 4 MG/2 ML SDV IV PRN (02:31)
[2020-08-08] MEDS ORDERED: ePHEDrine 50 MG/ML SDV IVPUSH PRN (02:31)
--- NOTE | 2020-08-08 07:22 | PCM48HPAN ---
Post Anesthesia Note - EVALUATION WITHIN 48HRS OF ANESTHETIC Vital Signs in Normal Range: Yes Patient Participated in Evaluation: Yes Respiratory Function Stable: Yes Airway Patent: Yes Cardiovascular Function Stable: Yes Hydration Status Stable: Yes Pain Control Satisfactory: Yes Nausea and Vomiting Control Satisfactory: Yes Mental Status Recovered: Yes Vital Signs: Last Vital Signs Temp 97.5 F 08/08/20 02:07 Pulse 85 08/08/20 05:01 Resp 15 08/08/20 02:07 BP 106/65 08/08/20 05:01 Pulse Ox 95 08/08/20 05:01 - COMMENTS/OBSERVATIONS Free Text/Narrative:: no complaints. sitting up in bed nursing.
[2020-08-08] MEDS: Prenatal Multivitamin with Calcium/Folic Acid/Iron Tab PO SCH (08:04)
[2020-08-08] MEDS: Ibuprofen 800 MG Tab PO SCH ×2 (08:05→16:05)
[2020-08-08] MEDS: Simethicone 80 MG Tab.Chew PO SCH ×4 (08:05→20:23)
[2020-08-08] MEDS: Acetaminophen/oxyCODONE 325-5 MG Tab PO PRN (20:23)
[2020-08-09] MEDS: Ibuprofen 800 MG Tab PO SCH ×3 (01:09→16:04)
[2020-08-09] MEDS: Acetaminophen/oxyCODONE 325-5 MG Tab PO PRN ×3 (03:19→20:35)
[2020-08-09] MEDS: Prenatal Multivitamin with Calcium/Folic Acid/Iron Tab PO SCH (08:22)
[2020-08-09] MEDS: Simethicone 80 MG Tab.Chew PO SCH ×4 (08:22→21:00)
[2020-08-09] MEDS: Docusate Sodium 100 MG Cap PO PRN ×2 (11:01→20:33)
--- NOTE | 2020-08-09 11:18 | PCM.SN.2 ---
- Free Text/Narrative Note: note: Patient is doing well in the period. Minimal lochia, voiding well, ambulated without problems. Nursing without concerns. Control is good. Patient is afebrile, vital signs are stable Abdomen is flat, soft, uterus is below the umbilicus and is firm and nontender. Incision appears dry, intact with Prineo mesh in place. Legs are nontender. Assessment: 1. Postoperative day #1postpartum recovery going well. Plan: 1. Routine care. Patient be discharged home within the next 24-48 hours.
[2020-08-10] MEDS: Ibuprofen 800 MG Tab PO SCH ×2 (00:30→08:21)
[2020-08-10] MEDS: Acetaminophen/oxyCODONE 325-5 MG Tab PO PRN (03:21)
--- NOTE | 2020-08-10 07:02 | PCM.DCSUM1 ---
Discharge Summary - Hospital Course Free Text/Narrative:: Erika is a 29-year-old 1 now para 1-0-0-1 white female who was admitted to labor and delivery on the evening of 08/07/2020 at 36-6/7 weeks gestational age with an SILVIA of 08/29/2020 with spontaneous rupture membranes in early labor. 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 Patient was pared for primary section and was taken to surgery. Delivery occurred early on the morning of 08/08/2020 at 37-0/7 weeks gestational age. Please see operative report for detail. The patient was noted to have moderate scarring in the anterior abdominal wall from previous surgery. Uterus was noted to be a unicornuate uterus with surgical scar in the left upper cornual area. The right ovary and fallopian tube were within normal limits. Significant vascularity noted on the anterior surface of the uterus in the presence of at least 3 varicose veins of 6 to 7 mm caliber. Baby was in a vertex presentation. Amniotic fluid was clear. A viable, mi, male with Apgars of 8 and 9, a weight of 6 pounds 7 ounces (2920 g, and a length of 20 inches. The baby delivered at 0029 hours on 08/08/2020. patient's pain was controlled with Toradol and Duramorph through spinal block initially followed by ibuprofen and Percocet thereafter. She made good bowel, bladder and ambulatory activity. She is nursing without problems. Her vital signs remained stable throughout course and her hemoglobin returned at 12.0 with platelets at 163,000. Patient is desiring discharge home. Diagnosis: Stroke: No - Discharge Data Discharge Date: 08/10/20 Discharge Disposition: Home, Self-Care 01 Condition: Good - Referral to Home Health Primary Care Physician: Edwin Andres MD - Patient Summary/Data Operative Procedure(s) Performed: Primary lower uterine segment transverse section through Pfannenstiel skin incision - Patient Instructions Diet: Regular Diet as Tolerated (Nursing diet with increased calories and calcium as recommended) Activity: As Tolerated (No intercourse or tampons until seen back. No lifting greater than 15 pounds no driving a car x1 week.) Driving: Do Not Drive Showering/Bathing: May Shower Wound/Incision Care: Keep Operative Site/Wound Site Clean and Dry Notify Provider of: Fever, Increased Pain, Swelling and Redness, Nausea and/or Vomiting - Discharge Plan Home Medications: Home Meds Pnv No.95/Ferrous Fum/Folic AC [ Tablet] 1 each PO DAILY 08/07/20 [History] Acetaminophen/oxyCODONE [Percocet 325-5 MG] 2 tab PO Q4H PRN tablet 08/10/20 [Rx] Ibuprofen [Motrin] 800 mg PO Q8H tablet 08/10/20 [Rx] Referrals: Edwin Andres MD [Primary Care Provider] - - Discharge Summary/Plan Comment DC Time >30 min.: No Discharge Summary/Plan Comment: Discharge instructions: 1. Discharge home 2. Diet, activity and follow-up discussed with patient. Recommend nursing diet with increased calories and calcium. 3. Precautions given concern increased pain, bleeding, temperature, signs/symptoms of DVT/PE. 4. Medications per home medication was printed, discussed with and given to the patient. 5. Return to clinic-Dr. Andres--[place] in 2 weeks. Diagnosis: 1. Term at 37-0/7 weeks gestational age with spontaneous rupture membranes and early labor-delivered 2. History of unicornuate uterus status post previous uterine surgery precluding attempt at trial of labor. Condition: Good - Patient Data Vitals - Most Recent: Last Vital Signs Temp 37.6 C 08/10/20 03:20 Pulse 76 08/10/20 03:20 Resp 14 08/10/20 03:20 BP 123/61 08/10/20 03:20 Pulse Ox 99 08/10/20 03:20 Weight - Most Recent: 85.275 kg I&O - Last 24 hours: Intake & Output 08/09/20 08/10/20 08/10/20 22:59 06:59 14:59 Intake Total 440 Balance 440 Med Orders - Current: Current Medications Diphenhydramine HCl (Benadryl) 25 mg IVPUSH Q6H PRN PRN Reason: Itching or Nausea Docusate Sodium (Colace) 100 mg PO Q12H PRN PRN Reason: Constipation Last Admin: 08/09/20 20:33 Dose: 100 mg Documented by: Ephedrine Sulfate (Ephedrine Sulfate) 5 mg IVPUSH SEECOMMENT PRN PRN Reason: Other Ibuprofen (Motrin) 800 mg PO Q8H [facility] Last Admin: 08/10/20 00:30 Dose: 800 mg Documented by: Naloxone HCl (Narcan) 0.1 mg IVPUSH SEECOMMENT PRN PRN Reason: Respiratory Depression Ondansetron HCl (Zofran) 4 mg IV Q4H PRN PRN Reason: Nausea/Vomiting Oxycodone/Acetaminophen (Percocet 325-5 Mg) 1 tab PO Q4H PRN PRN Reason: Pain (moderate 4-6) Last Admin: 08/10/20 03:21 Dose: 1 tab Documented by: Oxycodone/Acetaminophen (Percocet 325-5 Mg) 2 tab PO Q4H PRN PRN Reason: Pain (severe 7-10) Last Admin: 08/09/20 20:35 Dose: 2 tab Documented by: Prenat Multivit/[place]/Iron/Folic Ac ( Plus Iron) 1 each PO DAILY [facility] Last Admin: 08/09/20 08:22 Dose: 1 each Documented by: Simethicone (Simethicone) 160 mg PO QID [facility] Last Admin: 08/09/20 21:00 Dose: 160 mg Documented by: Discontinued Medications Bupivacaine HCl (Marcaine 0.5%) Confirm Administered Dose 30 ml .ROUTE .STK-MED ONE Stop: 08/07/20 23:35 Last Admin: 08/08/20 00:24 Dose: 20 ml Documented by: Cefazolin Sodium (Ancef) Confirm Administered Dose 2 gm .ROUTE .STK-MED ONE Stop: 08/08/20 00:01 Citric Acid/Sodium Citrate (Bicitra Solution) 30 ml PO ONETIME ONE Stop: 08/07/20 22:47 Last Admin: 08/07/20 23:16 Dose: 30 ml Documented by: Diphenhydramine HCl (Benadryl) 25 mg IVPUSH Q6H PRN PRN Reason: Pruritis Fentanyl (Sublimaze) Confirm Administered Dose 100 mcg .ROUTE .STK-MED ONE Stop: 08/08/20 00:01 Fentanyl (Sublimaze) 50 mcg IVPUSH Q5M PRN PRN Reason: Pain Lactated Ringer's (Ringers, Lactated) 1,000 mls @ 125 mls/hr IV ASDIRECTED [facility] Last Admin: 08/08/20 01:12 Dose: 999 mls/hr Documented by: Cefazolin Sodium/Dextrose 2 gm (/ Premix) 50 mls @ 100 mls/hr IV ONETIME ONE Stop: 08/07/20 23:15 Last Admin: 08/08/20 14:21 Dose: Not Given Documented by: Oxytocin/Lactated Ringer's (Pitocin In Lr 10 Units/1,000 Ml) 10 unit in 1,000 mls @ 100 mls/hr IV ASDIRECTED [facility] Azithromycin 500 mg/ Sodium (Chloride) 250 mls @ 250 mls/hr IV ONETIME ONE Stop: 08/07/20 23:45 Last Admin: 08/07/20 23:15 Dose: 250 mls/hr Documented by: Lactated Ringer's (Ringers, Lactated) Confirm Administered Dose 1,000 mls @ as directed .ROUTE .STK-MED ONE Stop: 08/08/20 00:17 Dextrose/Lactated Ringer's (Dextrose 5%-Lactated Ringers) 1,000 mls @ 125 mls/hr IV ASDIRECTED [facility] Stop: 08/08/20 10:30 Last Admin: 08/08/20 03:20 Dose: 125 mls/hr Documented by: Ketorolac Tromethamine (Toradol) Confirm Administered Dose 30 mg .ROUTE .STK-MED ONE Stop: 08/08/20 00:57 Metoclopramide HCl (Reglan) 10 mg IVPUSH ONETIME ONE Stop: 08/07/20 22:47 Last Admin: 08/07/20 23:16 Dose: 10 mg Documented by: Morphine Sulfate (Duramorph Pf) Confirm Administered Dose 10 mg .ROUTE .STK-MED ONE Stop: 08/08/20 00:01 Ondansetron HCl (Zofran) 4 mg IVPUSH ONETIME PRN PRN Reason: Nausea/Vomiting Oxytocin (Pitocin) Confirm Administered Dose 20 unit .ROUTE .STK-MED ONE Stop: 08/08/20 00:01 Sodium Chloride (Saline Flush) 10 ml FLUSH ASDIRECTED PRN PRN Reason: Keep Vein Open
[2020-08-10] MEDS: Prenatal Multivitamin with Calcium/Folic Acid/Iron Tab PO SCH (08:22)
[2020-08-10] MEDS: Simethicone 80 MG Tab.Chew PO SCH (08:22)
[2020-08-10 08:36] VITALS: BP 123/71; PULSE 70
== END 2020-08-10 12:10 | disposition home or self-care (01) | DRG 540 ==
LOC: JD.OBCHECK 22:19 → JD.OB 22:56 → OBSVTOIN 08-08 00:29 → JD.OB 08-08 00:30
PROVIDERS: ADMIT Obstetrics & Gynecology; ATTEND Obstetrics & Gynecology
PROC: 10D00Z1 Extraction of Products of Conception, Low, Open Approach (ICD-10-PCS; principal; 2020-08-08)
DX: O34.03 Maternal care for unspecified congenital malformation of uterus, third trimester (principal); Q51.4 Unicornate uterus; Z3A.36 36 weeks gestation of pregnancy; Z37.0 Single live birth; Z20.822 Contact with and (suspected) exposure to COVID-19
CPT/HCPCS: 01961; 36415; 59025; 85025; 86592; 86850; 86900; 86901; 94762; A9270-GY; J0456; J0690; J1885; J2270; J2590; J2765; J3010; J3490; J7050; J7120; J7121; U0002

== ENCOUNTER 2022-11-26 06:46 | Emergency (ER) | payer BC ==
[2022-11-26 09:20] VITALS: BP 101/70; PULSE 76
== END 2022-11-26 09:20 | disposition home or self-care (01) ==
LOC: JD.ED 06:46
DX: L02.01 Cutaneous abscess of face (principal)
CPT/HCPCS: 99283